=== PATIENT | male | born 1980 | race Caucasian/White ===

== ENCOUNTER 2018-02-12 22:29 | Emergency (ER) | payer OTHER ==
--- NOTE | 2018-02-12 23:00 | EDM.PDOC ---
ED HPI GENERAL MEDICAL PROBLEM - General Chief Complaint: Laceration Stated Complaint: PT HURT LT HAND Time Seen by Provider: 02/12/18 22:56 - History of Present Illness INITIAL COMMENTS - FREE TEXT/NARRATIVE: HISTORY AND PHYSICAL: History of present illness: Patient 37 male presents with concern of acute injured first digit of his left hand that occurred via blunt force trauma when he hit it with a hammer he sustained a laceration tenderness status is to be determined Review of systems: As per history of present illness and below otherwise all systems reviewed and negative. Past medical history: As per history of present illness and as reviewed below otherwise noncontributory. Surgical history: As per history of present illness and as reviewed below otherwise noncontributory. Social history: No reported history of drug or alcohol abuse. Family history: As per history of present illness and as reviewed below otherwise noncontributory. Physical exam: HEENT: Atraumatic, normocephalic, pupils reactive, negative for conjunctival pallor or scleral icterus, mucous membranes moist, throat clear, neck supple, nontender, trachea midline. Lungs: Clear to auscultation, breath sounds equal bilaterally, chest nontender. Heart: S1S2, regular, negative for clicks, rubs, or JVD. Abdomen: Soft, nondistended, nontender. Negative for masses or hepatosplenomegaly. Negative for costovertebral tenderness. Pelvis: Stable nontender. Genitourinary: Deferred. Rectal: Deferred. Extremities: First digit left hand has approximately 2.5 cm moderate depth laceration was good hemostasis nontender involvement no crepitation noted Neuro: Awake, alert, oriented. Cranial nerves II through XII unremarkable. Cerebellum unremarkable. Motor and sensory unremarkable throughout. Exam nonfocal. Diagnostics: X-ray left hand Therapeutics: Patient was anesthetized 1% lidocaine without epinephrine. Copious amounts 0.9 normal saline prepped and draped in sterile manner closed with 4-0 nylon interrupted suture bacitracin was applied Impression: #1 left hand injury with laceration Definitive disposition and diagnosis as appropriate pending reevaluation and review of above. left thumb Pain Score (Numeric/FACES): 0 - Related Data Allergies Allergy/AdvReac Type Severity Reaction Status Date / Time No Known Allergies Allergy Verified 02/12/18 22:56 Home Meds: Home Meds PARoxetine HCl [Paxil] 30 mg PO DAILY 02/12/18 [History] ED ROS GENERAL - Review of Systems Review Of Systems: ROS reveals no pertinent complaints other than HPI. ED EXAM, SKIN/RASH Exam: See Below (See dictation) Course - Vital Signs Last Recorded V/S: Last Vital Signs Temp 36.9 C 02/12/18 22:29 Pulse 94 02/12/18 22:29 Resp 18 02/12/18 22:29 BP 148/88 H 02/12/18 22:29 Pulse Ox 95 02/12/18 22:29 - Orders/Labs/Meds Orders: Active Orders 24 hr Category Date Time Status Fingers Thumb Lt FA [CR] Stat Exams 02/12/18 22:57 Taken Meds: Medications Discontinued Medications Generic Name Dose Route Start Last Admin Trade Name Anuja PRN Reason Stop Dose Admin Bacitracin 1 dose 02/12/18 23:09 02/12/18 23:21 Bacitracin Oint 1 Gm TOP 02/12/18 23:10 1 dose ONETIME ONE Administration Lidocaine HCl 20 ml 02/12/18 23:08 02/12/18 23:20 Xylocaine 1% INJECT 02/12/18 23:09 20 ml ONETIME ONE Administration Departure - Departure Time of Disposition: 03:32 Disposition: Home, Self-Care 01 Condition: Good Clinical Impression: Hand injury - Discharge Information Instructions: Laceration Care, Adult, [id number] Referrals: PCP,None [Primary Care Provider] - Forms: ED Department Discharge Additional Instructions: The following information is given to patients seen in the emergency department who are being discharged to home. This information is to outline your options for follow-up care. We provide all patients seen in our emergency department with a follow-up referral. The need for follow-up, as well as the timing and circumstances, are variable depending upon the specifics of your emergency department visit. If you don't have a primary care physician on staff, we will provide you with a referral. We always advise you to contact your personal physician following an emergency department visit to inform them of the circumstance of the visit and for follow-up with them and/or the need for any referrals to a consulting specialist. The emergency department will also refer you to a specialist when appropriate. This referral assures that you have the opportunity for followup care with a specialist. All of these measure are taken in an effort to provide you with optimal care, which includes your followup. Under all circumstances we always encourage you to contact your private physician who remains a resource for coordinating your care. When calling for followup care, please make the office aware that this follow-up is from your recent emergency room visit. If for any reason you are refused follow-up, please contact the [facility] emergency department at and asked to speak to the emergency department charge nurse. Suture removal as discussed 10-14 days Keflex as prescribed return as needed as discussed - My Orders Last 24 Hours: My Active Orders 02/12/18 22:57 Fingers Thumb Lt FA [CR] Stat - Assessment/Plan Last 24 Hours: My Active Orders 02/12/18 22:57 Fingers Thumb Lt FA [CR] Stat
[2018-02-12] MEDS ORDERED: Lidocaine 1% 20 ML MDV INJECT ONE (23:08)
[2018-02-12] MEDS ORDERED: Bacitracin Oint 1 GM U/D Packet TOP ONE (23:09)
--- NOTE | 2018-02-13 16:15 | CR ---
EXAM DATE: 02/12/18 PATIENT'S AGE: 37 Patient: GIUSEPPE MARQUES Facility: [place], [place] Site . Site : [id number] Study: XRay Extremity Left thumb [id number] 11:18:25 PM Ordering Physician: Doctor Ureña Final Report: INDICATION: Hit thumb with hammer TECHNIQUE: Finger radiograph 3 views left COMPARISON: None FINDINGS: Bones: No acute fractures or aggressive bone lesions are identified. Joints: The metacarpophalangeal and interphalangeal joints are normal in appearance. Soft tissues: Unremarkable. No radiopaque foreign bodies are seen. IMPRESSION: 1. No acute osseous injuries or abnormalities are noted. Dictated by: Morris Aparicio MD @ 02/12/2018 23:43:53 (Electronic Signature) Report Signed by Proxy. [facility]
== END 2018-02-12 23:42 | disposition home or self-care (01) ==
LOC: MW.ED 22:29
DX: S61.412A Laceration without foreign body of left hand, initial encounter (principal); W22.8XXA Striking against or struck by other objects, initial encounter
CPT/HCPCS: 73140-26-FA; 73140-FA; 99283